=== PATIENT | female | born 1985 | race American Indian/Alaskan Native ===

== ENCOUNTER 2018-08-29 17:44 | Outpatient (CLI) | payer MEDICAID ==
[2018-08-29 17:57] VITALS: BP 139/82
[2018-08-29] MEDS ORDERED: LACTATED RINGERS 500 ML IV ONE (18:07)
[2018-08-29 18:33] LABS: Bilirubin,Urine NEG (Negative); Blood,Urine NEG (Negative); Color,Urine Yellow (Yellow); Protein,Urine <15 mg/dL mg/dL (Negative); Urobilinogen,Urine < 2.0 mg/dL (<2.0)
[2018-08-29 18:42] LABS: Amphetamine Screen,Urine PRESUMPTIVE NEGATIVE; Benzodiazepines Screen,Urine PRESUMPTIVE NEGATIVE; Methadone Screen,Urine PRESUMPTIVE NEGATIVE; Opiate Screen,Urine PRESUMPTIVE NEGATIVE
[2018-08-29 18:54] LABS: Cannabinoid Screen,Urine PRESUMPTIVE POSITIVE; Cocaine Screen,Urine PRESUMPTIVE POSITIVE
== END 2018-08-29 18:57 | disposition home or self-care (01) ==
LOC: TRG 17:44
PROVIDERS: ATTEND Obstetrics & Gynecology
DX: O47.03 False labor before 37 completed weeks of gestation, third trimester (principal); Z3A.31 31 weeks gestation of pregnancy
CPT/HCPCS: 59025; 80307; 81001

== ENCOUNTER 2018-09-19 15:00 | Outpatient (CLI) | payer MEDICAID ==
[2018-09-19] MEDS ORDERED: LACTATED RINGERS 500 ML IV ONE (16:04)
[2018-09-19 16:42] LABS: Bacteria,Urine 2+ /HPF (Negative); Bilirubin,Urine NEG (Negative); Blood,Urine NEG (Negative); Color,Urine Yellow (Yellow); Protein,Urine <15 mg/dL mg/dL (Negative); Urobilinogen,Urine < 2.0 mg/dL (<2.0)
[2018-09-19 16:59] LABS: Benzodiazepines Screen,Urine PRESUMPTIVE NEGATIVE; Cannabinoid Screen,Urine PRESUMPTIVE NEGATIVE; Methadone Screen,Urine PRESUMPTIVE NEGATIVE; Opiate Screen,Urine PRESUMPTIVE NEGATIVE
[2018-09-19 17:15] LABS: Amphetamine Screen,Urine PRESUMPTIVE POSITIVE; Cocaine Screen,Urine PRESUMPTIVE POSITIVE
[2018-09-19 17:46] VITALS: BP 137/91
--- NOTE | 2018-09-19 19:44 | Ultrasound Report ---
ULTRASOUND OBSTETRIC Indication: No care Findings: There are 2 living intrauterine pregnancies. They appear to be diamniotic dichorionic. Baby A: BPD = 7.5 cm = 30 weeks, 0 day(s). Head circumference = 27.8 cm = 30 weeks, 3 day(s). Abdominal circumference = 24.3 cm = 28 weeks, 4 day(s). Femur length = 6.0 cm = 31 weeks, 1 day(s). Overall estimated sonographic age = 30 weeks, 0 day(s). heart rate is 137 beats per minute. Estimated weight is 1440 grams position is cephalic. Cervix appears closed. movement is present. Placenta is right lateral and grade 3 . Amniotic fluid volume appears normal. Maternal adnexa appear normal. Baby B: BPD = 7.72 cm = 31 weeks, 0 day(s). Head circumference = 29.6 cm = 32 weeks, 5 day(s). Abdominal circumference = 24.3 cm = 28 weeks, 4 day(s). Femur length = 6.2 cm = 31 weeks, 6 day(s). Overall estimated sonographic age = 31 weeks, 0 day(s). heart rate is 144 beats per minute. Estimated weight is 1541 grams position is cephalic. Cervix appears closed. movement is present. Placenta is left lateral and grade 3 . Amniotic fluid volume appears normal. Maternal adnexa appear normal. Impression: 1. Dichorionic diamniotic twin as detailed above. No appreciable concerning abnormality. Signer Name: Jigar Nails MD Signed: 09/19/2018 6:40 PM Workstation Name: [id number]
== END 2018-09-19 19:45 | disposition home or self-care (01) ==
LOC: TRG 15:00
PROVIDERS: ATTEND Obstetrics & Gynecology
DX: O47.03 False labor before 37 completed weeks of gestation, third trimester (principal); Z3A.35 35 weeks gestation of pregnancy
CPT/HCPCS: 59025; 76805; 76810; 80307; 81001